=== PATIENT | female | born 1970 | race African-American/Black ===

== ENCOUNTER 2018-05-22 15:43 | Emergency (ER) | payer SELFPAY ==
[~2018-05-22] VITALS: Ht 170.2 cm; Wt 97.0 kg
[2018-05-22] MEDS ORDERED: METHYLPREDNISOLONE SOD SUCC 125 MG/2 ML VIAL IV STA (15:55)
[2018-05-22] MEDS ORDERED: ONDANSETRON HCL 4MG/2ML VIAL IV STA (15:55)
[2018-05-22] MEDS ORDERED: SODIUM CHLORIDE 0.9% 1,000 ML IV ONE (15:55)
[2018-05-22] MEDS ORDERED: MAGNESIUM 2 G PREMIX 50 ML IV ONE (16:00)
[2018-05-22] MEDS ORDERED: LEVOFLOXACIN 750MG PREMIX 150 ML IV ONE (16:00)
[2018-05-22] MEDS ORDERED: IPRATROPIUM/ALBUTEROL 0.5-3(2.5)MG/3ML NEB HHN ONE (16:00)
[2018-05-22] MEDS ORDERED: IPRATROPIUM/ALBUTEROL 0.5-3(2.5)MG/3ML NEB ONE (16:01)
[2018-05-22] MEDS ORDERED: MAGNESIUM 1 G PREMIX 100 ML IV SCH (16:05)
[2018-05-22 16:32] LABS: HCG SCREEN NEGATIVE
[2018-05-22 16:35] LABS: CHLORIDE 110 mEq/L (98-107)
[2018-05-22 16:37] LABS: PARTIAL THROMBOPLASTIN TIME 24.5 sec (23.4-31.0); PROTHROMBIN TIME 9.7 sec (9.1-11.1)
[2018-05-22 16:38] LABS: HEMATOCRIT. 28.8 % (36.0-48.0); HEMOGLOBIN. 8.9 g/dL (12.0-16.0); MEAN CORPUSCULAR HEMOGLOBIN 18.8 pg (28.0-32.0); MEAN CORPUSCULAR VOLUME 60.8 fL (81.0-99.0); MEAN PLATELET VOLUME 9.5 fl (7.4-10.4); PLATELET 289 x1000/uL (130-400); RED BLOOD CELL COUNT 4.73 mill/uL (4.2-5.4); RED CELL DISTRIBUTION WIDTH 20.6 % (11.6-14.6)
[2018-05-22 16:40] LABS: ETHANOL BLOOD < 10 mg/dL
[2018-05-22 17:30] LABS: PLATELET ESTIMATE NORMAL
[2018-05-22 19:04] VITALS: BP 123/71
== END 2018-05-22 19:19 | disposition home or self-care (01) ==
LOC: ER 15:43 → CANBEDREQ 23:41
DX: J45.909 Unspecified asthma, uncomplicated (principal); E11.9 Type 2 diabetes mellitus without complications; R00.0 Tachycardia, unspecified; R06.82 Tachypnea, not elsewhere classified; F17.200 Nicotine dependence, unspecified, uncomplicated
CPT/HCPCS: 36415; 71045; 80053; 83880; 84484; 84703; 85025; 85610; 85730; 93005; 94640; 96365; 96366; 96368; 96375; 99285; 99406; G0482; J1956; J2405; J2930; J3475; J7030; J7620